=== PATIENT | male | born 1970 | race Asian ===

== ENCOUNTER 2021-09-26 23:08 | Emergency (ER) | payer OTHER ==
[~2021-09-26] VITALS: Ht 162.6 cm; Wt 54.5 kg
[2021-09-26 23:14] VITALS: BP 128/83
== END 2021-09-27 06:33 ==
LOC: ER 23:09
DX: F10.129 Alcohol abuse with intoxication, unspecified (principal); Z02.89 Encounter for other administrative examinations; Z04.2 Encounter for examination and observation following work accident; Y90.9 Presence of alcohol in blood, level not specified
CPT/HCPCS: 99283